=== PATIENT | male | born 1945 | race Caucasian/White ===

== ENCOUNTER 2021-08-12 08:03 | Inpatient (IN) ==
[2021-08-12] MEDS: HYDROmorphone INJ 0.5 MG/0.5 ML SYR IV PRN ×2 (08:47→10:48)
[2021-08-12 09:01] LABS: Basophils # (auto) 0.04 K/uL (0-0.2); Basophils % (auto) 0.7 %; Eosinophils % (auto) 3.4 %; Hematocrit (blood only) 36.2 % (42-52); Immature Granulocytes # (auto) 0.03 K/uL (0.00-0.02); Immature Granulocytes % (auto) 0.5 %; Lymphocytes # (auto) 1.48 K/uL (1.2-3.4); Lymphocytes % (auto) 25.4 %; Mean Corpuscular Hgb Conc 33.1 g/dL (32-36); Mean Corpuscular Volume 90.5 fL (80-100); Mean Platelet Volume 9.5 fL (7.4-10.4); Monocytes # (auto) 0.46 K/uL (0.11-0.59); Monocytes % (auto) 7.9 %; Neutrophils # (auto) 3.62 K/uL (1.4-6.5); Neutrophils % (auto) 62.1 %; Platelet Count 210 K/uL (130-400); RDW Coefficient of Variation 14.3 % (11.5-14.5); RDW Standard Deviation 47.6 fL (36.4-46.3); White Blood Count 5.83 K/uL (4.8-10.8)
--- NOTE | 2021-08-12 09:11 | CT Scan Report ---
CT SCAN OF THE BRAIN WITHOUT IV CONTRAST CLINICAL HISTORY: Fall. COMPARISON STUDY: No priors. TECHNIQUE: Unenhanced axial CT scan of the brain is performed from the vertex to the skull base. A do se lowering technique was utilized adhering to the principles of ALARA. CT DOSE: 614.27 mGy.cm FINDINGS: Brain parenchyma: There are age-related involutional changes noting mild subcortical and periventric ular microangiopathic change. There is no hemorrhage, mass effect, or evidence of acute territorial i schemia by CT criteria. Munguia-white matter differentiation is preserved. No extra-axial fluid collecti on is seen. Ventricles, sulci, cisterns: Prominent secondary to involutional change. Intracranial vasculature: There is atherosclerotic calcification of the cavernous carotid and vertebr al arteries. Calvarium: The skeletal structures are osteopenic. No depressed calvarial fracture is identified. Sinuses and mastoids: Trace mucosal thickening is noted in the maxillary antra. The remaining paranas al sinuses are clear. The mastoid air cells are well pneumatized. Orbits: The bony orbits are grossly intact. IMPRESSION: There is no hemorrhage, mass effect, or evidence of acute territorial ischemia by CT char lara. ACT 112: Negative or not required by law. Electronically signed by: Myron Schwartz M.D. 08/12/2021 9:09 AM
[2021-08-12 09:19] LABS: Albumin Level 3.4 gm/dl (3.4-5.0); BUN Creatinine Ratio 22.4 (10-20); Calcium 8.8 mg/dl (8.5-10.1); Creatinine Clr Calc Pharmacy 61.7 ml/min; Est GFR (African American) 76.2 ml/min; Est GFR (Non-African American) 65.8 ml/min; Potassium 4.3 mmol/L (3.5-5.1)
[2021-08-12 09:22] LABS: Albumin Globulin Ratio 0.9 (0.9-2); Bilirubin,Total 0.5 mg/dl (0.2-1); Globulin 3.9 gm/dl (2.5-4.0); Total Protein 7.3 gm/dl (6.4-8.2)
--- NOTE | 2021-08-12 09:46 | XRay Report ---
XR femur RT 2V routine HISTORY: 76 years-old Male fall . Acute pain of the right thigh status post fall COMPARISON: None TECHNIQUE: 2 views of the right femur FINDINGS: There is an acute comminuted fractures involving the proximal subtrochanteric femoral diaphysis with spiral component. There is approximately 3 mm medial and 2 cm volar displacement with mild apex volar and lateral angulation. Fracture component extends into the lesser trochanter which is displaced med ially. Moderate associated soft tissue swelling. Moderate right hip osteoarthritis. No additional acu te fracture or dislocation. Osteoarthritis of the knee. Arterial calcifications. Small right knee carrillo nt effusion. IMPRESSION: Acute comminuted, displaced and angulated subtrochanteric fracture of the proximal right femoral diaphysis. ACT 112: Negative or not required by law. The above report was generated using voice recognition software. It may contain grammatical, syntax o r spelling errors. Electronically signed by: Remigio Rodriguez M.D. 08/12/2021 9:45 AM
--- NOTE | 2021-08-12 10:06 | XRay Report ---
XR chest 1V portable CLINICAL HISTORY: fall COMPARISON STUDY: No previous studies for comparison. FINDINGS: No pneumothorax. No pleural effusion. No large infiltrates or consolidative lesions are seen. Cardiomediastinal silhouette is within normal limits in size. No significant pulmonary vascular congestion.. Aorta is tortuous and calcified. Osseous structures: No definite dislocated fractures are seen. Degenerative changes of the spine and bilateral shoulders are seen. IMPRESSION: 1. No acute pulmonary process. 2. Atherosclerosis. ACT 112: Negative or not required by law. The above report was generated using voice recognition software. It may contain grammatical, syntax o r spelling errors. Electronically signed by: Alysa Plascencia DO 08/12/2021 10:05 AM
--- NOTE | 2021-08-12 11:23 | History & Physical Report ---
Date of Service August 12, 2021 Assessment & Plan (1) Fall from ladder: (2) Closed right femoral fracture: Plan: This is a 76-year-old male with no known past medical problems who presents after fall earlier today and was found to have acute comminuted, displaced and angulated subtrochanteric fracture of the proximal right femoral diaphysis. Vital signs stable R Femur XR with acute comminuted, displaced and angulated subtrochanteric fracture of the proximal right femoral diaphysis Ortho consulted, planning to take patient to OR this afternoon Keep patient NPO, IV fluids, pre-op abx, pain control Pre-op EKG with sinus bradycardia, CXR without acute abnormalities Revised Cardiac Risk Index for Pre-Operative Risk with class 1 risk Able to complete >4 METs without issue, works as building tech Ortho surgery, anesthesia consulted DVT Ppx: SCDs Code status: FULL PCP: No PCP Dispo: Admitted to med/surg Patient seen in collaboration with Dr. Escobedo. Please see addendum. Plan: Attending Addendum: care coordinated with RAFAEL Mora please refer to her notes for full details, I agree with her notes patient seen and examined, records reviewed by myself as well on exam, patient seen resting in bed, not in distress s/p ORIF BP 89/60 alert, oriented x 3, conversant states he has minimal pain on the surgical site denies dizziness, chest pain, dyspnea, nausea no other symptoms VS noted and reviewed oriented x 3, not in distress, speaks in sentences with no effort nor accessory muscle use normal rate, regular rhythm, no murmurs clear breath sounds bilaterally non distended, soft, nontender R hip surgical dressing in place no bipedal edema, erythema, warmth no neuro deficits WBC 5.8 Hg 12.0 Crea 1.1 ASSESSMENT AND PLAN> Right displaced 4-part comminuted subtrochanteric femur fracture. s/p ORIF 08/12/21 BP on the lower side but asymptomatic likely from spinal anesthesia, Fentanyl 500cc NSS bolus ordered continue LR 125cc/hr monitor closely discussed with RN other diagnoses and plan of care as per LANDY Mora's notes Familia Escobedo MD History of Present Illness Chief Complaint: Fall Primary Care Provider: NO PCP This is a 76-year-old male with no known past medical problems who presents after fall earlier today. 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 Was climbing a ladder earlier today when it shifted out from under him and he fell to the ground onto his right side. Denies any head trauma or loss of consciousness. No headache, chest pain or shortness of breath following fall. Was brought into ED for evaluation. Patient does not seek medical care regularly. Takes a baby aspirin in the evening but no other medications. No history of heart disease, stroke, diabetes or kidney disease that is known. Pain controlled with 1 dose of IV Dilaudid in ED. Resting comfortably. Denies any fever, chills, lightheadedness, nausea, vomiting, abdominal pain, dysuria, diarrhea constipation. Allergies Allergy/AdvReac Type Severity Reaction Status Date / Time No Known Allergies Allergy Unverified 08/12/21 09:15 Home Medications Medication Instructions Recorded Confirmed Type aspirin 81 mg tablet,delayed 81 mg PO HS 08/12/21 08/12/21 History release Past Med/Surg History Medical History Closed right femoral fracture Surgical History H/O hernia repair Family History Other Lung cancer Parkinsons disease Social History Smoking Status: Never smoker Do You Dip or Chew Tobacco: No; Hx Alcohol Use: No Hx Substance Use: No Feels Safe at Home: Yes Review of Systems Review of Systems: At least ten systems reviewed and negative except as noted in the HPI. Physical Exam Physical Exam: General Appearance: WD/WN, vitals as above, NAD, sitting up in bed, pleasant, conversing easily Head: normocephalic, atraumatic Eyes: normal inspection, PERRL, conjunctivae normal, anicteric sclerae ENT: external ear and nose normal, oropharynx normal Neck: normal visual inspection, trachea midline, no thyromegaly Respiratory: normal respiratory effort, lungs clear to auscultation, no wheeze, rales, rhonchi. No accessory muscle use Cardiovascular: regular rate, rhythm, no murmur, normal peripheral pulses, no BLE edema. Vessels: no JVD Chest: normal inspection of chest Abdomen/GI: normal bowel sounds, soft, nontender, no hepatosplenomegaly Extremities/Musculoskeletal: R thigh with swelling, TTP to proximal femur. Skin intact. NVI distally in RLE. ROM limited 2/2 pain. No cyanosis or clubbing Neurologic: PERRL, EOMI, accommodation nl, no face palsy, no dysarthria, CN's II-XI intact bilaterally and moves all extremities Psychiatric: A+Ox3, euthymic affect Skin: no rashes, normal color, warm/dry Results & Data Results & Data ([facility]) Vital Signs (Past 12 Hours) Vital Signs Temp Pulse Resp BP Pulse Ox 08/12/21 10:00 57 L 20 104/61 99 08/12/21 09:30 53 L 22 123/68 100 08/12/21 09:01 60 97 08/12/21 09:00 55 L 23 97/60 L 99 08/12/21 08:59 56 L 22 100/59 L 99 08/12/21 08:28 36.9 C 66 18 114/65 98 08/12/21 08:11 59 L 18 114/65 Laboratory Results Short CBC 08/12/21 Range/Units 08:48 WBC 5.83 (4.8-10.8) K/uL Hgb 12.0 L (14.0-18.0) g/dL Hct 36.2 L (42-52) % Plt Count 210 (130-400) K/uL BMP 08/12/21 08:48 Sodium 140 Potassium 4.3 Chloride 107 Carbon Dioxide 27 BUN 25 H Creatinine 1.10 Glucose 139 H Calcium 8.8 Liver Function 08/12/21 Range/Units 08:48 Total Bilirubin 0.5 (0.2-1) mg/dl AST 22 (15-37) U/L ALT 28 (12-78) U/L Alkaline Phosphatase 47 (45-117) U/L Albumin 3.4 (3.4-5.0) gm/dl Diagnostic Findings Head CT 08/12/21 08:36 CT SCAN OF THE BRAIN WITHOUT IV CONTRAST CLINICAL HISTORY: Fall. COMPARISON STUDY: No priors. TECHNIQUE: Unenhanced axial CT scan of the brain is performed from the vertex to the skull base. A dose lowering technique was utilized adhering to the principles of ALARA. CT DOSE: 614.27 mGy.cm FINDINGS: Brain parenchyma: There are age-related involutional changes noting mild subco rtical and periventricular microangiopathic change. There is no hemorrhage, mass effect, or evidence of acute territorial ischemia by CT criteria. Munguia-white matter differentiation is preserved. No extra-axial fluid collection is seen. Ventricles, sulci, cisterns: Prominent secondary to involutional change. Intracranial vasculature: There is atherosclerotic calcification of the cavernous carotid and vertebral arteries. Calvarium: The skeletal structures are osteopenic. No depressed calvarial fracture is identified. Sinuses and mastoids: Trace mucosal thickening is noted in the maxillary antra. The remaining paranasal sinuses are clear. The mastoid air cells are well pneumatized. Orbits: The bony orbits are grossly intact. IMPRESSION: There is no hemorrhage, mass effect, or evidence of acute territorial ischemia by CT criteria. ACT 112: Negative or not required by law. Electronically signed by: Myron Schwartz M.D. 08/12/2021 9:09 AM Chest X-Ray 08/12/21 08:41 XR chest 1V portable CLINICAL HISTORY: fall COMPARISON STUDY: No previous studies for comparison. FINDINGS: No pneumothorax. No pleural effusion. No large infiltrates or consolidative lesions are seen. Cardiomediastinal silhouette is within normal limits in size. No significant pulmonary vascular congestion.. Aorta is tortuous and calcified. Osseous structures: No definite dislocated fractures are seen. Degenerative changes of the spine and bilateral shoulders are seen. IMPRESSION: 1. No acute pulmonary process. 2. Atherosclerosis. ACT 112: Negative or not required by law. The above report was generated using voice recognition software. It may contain grammatical, syntax or spelling errors. Electronically signed by: Alysa Plascencia DO 08/12/2021 10:05 AM Femur X-Ray 08/12/21 08:41 XR femur RT 2V routine HISTORY: 76 years-old Male fall . Acute pain of the right thigh status post fall COMPARISON: None TECHNIQUE: 2 views of the right femur FINDINGS: There is an acute comminuted fractures involving the proximal subtrochanteric femoral diaphysis with spiral component. There is approximately 3 mm medial and 2 cm volar displacement with mild apex volar and lateral angulation. Fracture component extends into the lesser trochanter which is displaced medially. Moderate associated soft tissue swelling. Moderate right hip osteoarthritis. No additional acute fracture or dislocation. Osteoarthritis of the knee. Arterial calcifications. Small right knee joint effusion. IMPRESSION: Acute comminuted, displaced and angulated subtrochanteric fracture of the proximal right femoral diaphysis. ACT 112: Negative or not required by law. The above report was generated using voice recognition software. It may contain grammatical, syntax or spelling errors. Electronically signed by: Remigio Rodriguez M.D. 08/12/2021 9:45 AM Code Status & VTE Plan VTE Prophylaxis Plan VTE Prophylaxis will be ordered: Yes
--- NOTE | 2021-08-12 12:02 | Anesthesiology Consultation ---
Date of Service August 12, 2021 Assessment & Plan (1) Encounter for pre-operative examination: Chart Review Chart Review: Acceptable Risk for Surgery and Patient NOT seen in Pre Admission Testing covid neg 08/12/21 Consults Requested none History Surgery Operation Date: 08/12/21 10:45 Proposed Procedures p Right Troch Nail - Moy Rock DO Height/Weight Height: 5 ft 8 in Weight: 82.6 kg Allergies Allergy/AdvReac Type Severity Reaction Status Date / Time No Known Allergies Allergy Unverified 08/12/21 09:15 Medications Home Medications Medication Instructions Recorded Confirmed Last Taken aspirin 81 mg tablet,delayed 0 mg PO DAILY 08/12/21 08/12/21 08/12/21 release 3 tabs Active Medications Generic Name Dose Route Start Last Admin Trade Name Freq PRN Reason Stop Dose Admin Hydromorphone HCl 0.5 mg 08/12/21 08:36 08/12/21 10:48 Hydromorphone Inj 0.5 Mg/0.5 Ml Syr IV 08/26/21 08:44 0.5 mg Q15M PRN Administration pain NPO Date Last Intake of Fluids: 08/12/21 Time Last Intake of Fluids: 06:00 Date Last Intake of Solids: 08/12/21 Time Last Intake of Solids: 06:00 Past Medical History Medical History (Updated 08/12/21 @ 12:48 by Tay Carson MD) Closed right femoral fracture Past Surgical History Surgical History (Updated 08/12/21 @ 12:47 by Tay Carson MD) H/O hernia repair Past Anesthesia History No Hx of Anesthesia Complications and No Family Hx of Anesthesia Complications History of PONV No Hx of PONV and No Hx of Motion Sickness Social History Smoking Status: Never smoker Do You Dip or Chew Tobacco: No Hx Alcohol Use: No Hx Substance Use: No Physical Exam Vital Signs Last Vital Signs Temp 36.9 C 08/12/21 08:28 Pulse 67 08/12/21 12:00 Resp 22 08/12/21 12:00 BP 111/65 08/12/21 12:00 Pulse Ox 96 08/12/21 12:00 ENMT Mouth: + dentition abnormality, + poor dentition and + chipped teeth; no TMJ abnormality and no loose teeth Thyromental Distance: > or= 3.5 Finger Breadths Mallampati Class: II Neck normal visual inspection and + facial hair (large osborn ) Respiratory normal respiratory effort; no respiratory distress Cardiovascular Rate/Rhythm: regular rate and regular rhythm Heart Sounds: no murmur Musculoskeletal Spine: normal cervical ROM and no pain with cervical ROM Neurologic moves all extremities Motor/Sensory: no sensory deficit Psychiatric Orientation: alert and oriented x 3 Testing Laboratory Results 08/12/21 08:48 08/12/21 08:48 Blood Type A Positive 08/12/21 08:51 Antibody Screen NEGATIVE 08/12/21 08:51 Electrocardiogram Date: 08/12/21 Sinus alta. HR 57. Cannot rule out inferior infarct, age undetermined. Abnormal ECG. Chest X-Ray Date: 08/12/21 XR chest 1V portable CLINICAL HISTORY: fall COMPARISON STUDY: No previous studies for comparison. FINDINGS: No pneumothorax. No pleural effusion. No large infiltrates or consolidative lesions are seen. Cardiomediastinal silhouette is within normal limits in size. No significant pulmonary vascular congestion.. Aorta is tortuous and calcified. Osseous structures: No definite dislocated fractures are seen. Degenerative changes of the spine and bilateral shoulders are seen. IMPRESSION: 1. No acute pulmonary process. 2. Atherosclerosis.
--- NOTE | 2021-08-12 13:08 | Orthopedic Consultation ---
Date of Consultation August 12, 2021 Assessment & Plan (1) Closed right femoral fracture: X-rays reviewed with Dr. Rock. Patient will require a long TFN with the possibility of use of cables to secure butterfly fragments. Risks and benefits have been explained to the patient to the best of my knowledge. Patient is in agreement to undergo surgery. I have spoken to Alexa Mora PA-C. Patient at this time appears stable. Anesthesia has seen the patient as well. Plan for OR this afternoon. 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 He states that as he was climbing up the ladder the ladder shifted out from under him and he fell to the ground. He denies hitting his head. He denies losing consciousness. There was no shortness of breath, chest pain, lightheadedness prior to or after the fall. The patient states that when he hit the ground, he had moderate pain in the right thigh and he was unable to ambulate. He was brought to the emergency room where he was seen by the staff. X-rays were taken. It was found that he had a right subtrochanteric comminuted femur fracture. We have been asked to take care of his fracture. Currently the patient is lying in bed awake and alert. He states that his pain is controlled at this time. He states the only time he tries to hurt is if he tries to move. No other complaints at this time. Allergies Allergy/AdvReac Type Severity Reaction Status Date / Time No Known Allergies Allergy Unverified 08/12/21 09:15 Home Medications Medication Instructions Recorded Confirmed Type aspirin 81 mg tablet,delayed 0 mg PO DAILY 08/12/21 08/12/21 History release Patient History Medical History Closed right femoral fracture Surgical History H/O hernia repair Social History Smoking Status: Never smoker Do You Dip or Chew Tobacco: No; Hx Alcohol Use: No Hx Substance Use: No Feels Safe at Home: Yes Review of Systems Review of Systems: Denies any recent fevers, chills, night sweats, unexplained weight loss or weight gain. No flu or cold-like symptoms. No increased cough or sputum production. Denies chest pain, chest pressure, irregular heartbeat, myocardial infarction. Denies shortness of breath at rest or on exertion. Denies history of pneumonia, bronchitis, hemoptysis. Denies unusual nausea, vomiting, diarrhea, hematemesis, melena. Denies hematuria, pyuria, dysuria. No history of seizure disorder, migraine headache Physical Exam Physical Exam: On exam, the patient is lying in bed awake and alert. He is oriented x3. He is in no acute distress. Pleasant and cooperative. On examination of his right lower extremity, he has moderate swelling at the right thigh. He has noticeable shortening of the right leg compared to the left. Swelling is increased around the intertrochanteric/subtrochanteric region that is mildly tense. Edema translates distally and is soft. No overt bruising noted on the right knee and range of motion is deferred secondary to fracture. He states that he does have pain in his knee at times but currently no pain with palpation. He has good range of motion of his right ankle at this time with out discomfort. Left lower extremity is unaffected and is nontender at the hip, knee, ankle with range of motion intact. Upper extremities are within normal limits. He is nontender at the shoulders, elbows, and wrists. Range of motion within normal limits. There is no gross motor or sensory loss seen at this time. Distal pulses are equal bilaterally of the upper and lower extremities. Results & Data ([facility]) Vital Signs (Past 12 Hours) Vital Signs Temp Pulse Resp BP Pulse Ox 08/12/21 12:00 67 22 111/65 96 08/12/21 11:30 67 20 115/64 99 08/12/21 11:00 61 23 95/55 L 96 08/12/21 10:30 59 L 21 105/61 98 08/12/21 10:00 57 L 20 104/61 99 08/12/21 09:30 53 L 22 123/68 100 08/12/21 09:01 60 97 08/12/21 09:00 55 L 23 97/60 L 99 08/12/21 08:59 56 L 22 100/59 L 99 08/12/21 08:28 36.9 C 66 18 114/65 98 08/12/21 08:11 59 L 18 114/65 Diagnostic Findings Patient: MARGARITA GONZALEZ IAdmit Date: 08/12/21MR#: [id number]: Martina MOORE RDAcct ID:[id number]: Date: 1945[facility] Zip: [place], [place] [address]Cun: 76Location: EDSex: MRoom/Bed:Att Phy:Diagnosis: FELL OFF LADDER- BROKEN R LEGPri Phy: PCP,NOService Date: 08/12/21Fam Phy:Interpreting Phy: Remigio RodriguezAdmnishi Phy: Ordering Phy: Florencio Masterson MD cc: ~ XR femur RT 2V routine HISTORY: 76 years-old Male fall . Acute pain of the right thigh status post fall COMPARISON: None TECHNIQUE: 2 views of the right femur FINDINGS: There is an acute comminuted fractures involving the proximal subtrochanteric femoral diaphysis with spiral component. There is approximately 3 mm medial and 2 cm volar displacement with mild apex volar and lateral angulation. Fracture component extends into the lesser trochanter which is displaced medially. Moderate associated soft tissue swelling. Moderate right hip osteoarthritis. No additional acute fracture or dislocation. Osteoarthritis of the knee. Arterial calcifications. Small right knee joint effusion. IMPRESSION: Acute comminuted, displaced and angulated subtrochanteric fracture of the proximal right femoral diaphysis. ACT 112: Negative or not required by law.
[2021-08-12] MEDS ORDERED: BUPIVACAINE 0.5 % 5 MG/1 ML MPF 30ML VIAL ONE (13:37)
[2021-08-12] MEDS ORDERED: BUPIVACAINE 0.5 % 5 MG/1 ML PF 10ML VIAL ONE (13:53)
[2021-08-12] MEDS ORDERED: PROPOFOL IV EMULSION 10 MG/ML 20 ML VIAL IV ONE (14:13)
[2021-08-12] MEDS ORDERED: ePHEDrine sulfate 50 MG/ML AMP IV PRN (14:17)
[2021-08-12] MEDS ORDERED: ATROPINE SULFATE 0.1 MG/ML 10ML SYR IV PRN (14:17)
[2021-08-12] MEDS ORDERED: fentaNYL citrate 100 MCG/2 ML VIAL IV PRN (14:17)
[2021-08-12] MEDS ORDERED: PROMETHAZINE HCL 6.25 MG in SODIUM CHLORIDE 0.9% 50 ML IV PRN (14:17)
[2021-08-12] MEDS ORDERED: ONDANSETRON INJ 2 MG/ML 2 ML VIAL IV PRN ×2 (14:17→19:34)
[2021-08-12] MEDS ORDERED: ceFAZolin 2000MG 2,000 MG/15 ML SYR IV ONE (14:26)
[2021-08-12] MEDS ORDERED: MIDAZOLAM HCL 1 MG/ML 2ML VIAL ONE (14:27)
[2021-08-12] MEDS ORDERED: ceFAZolin 2,000 MG/15 ML IV PUSH IV ONE (14:27)
--- NOTE | 2021-08-12 14:29 | History & Physical Bridge Note ---
Date of Service August 12, 2021 History & Physical Bridge Note I have examined the patient, reviewed the History & Physical and in the interval since the performance of the History & Physical I have noted the following changes of clinical significance: no changes noted
[2021-08-12] MEDS ORDERED: fentaNYL citrate 100 MCG/2 ML VIAL ONE (14:35)
[2021-08-12] MEDS ORDERED: ONDANSETRON INJ 2 MG/ML 2 ML VIAL ONE (15:08)
[2021-08-12] MEDS ORDERED: ePHEDrine sulfate 50 MG/ML AMP ONE (15:08)
--- NOTE | 2021-08-12 15:11 | Emergency Department Note ---
Impression & Plan Closed right femoral fracture, Fall from ladder ED Provider Note INFORMANT: Patient ED PROVIDER(S): Florencio Masterson MD CHIEF COMPLAINT: Fall PLAN: Disposition: Admitted Condition: Good Outpatient prescription management: none Referral: None MEDICAL DECISION MAKING: Patient presented for an isolated fall. He suffered an injury to the right proximal leg. He had head CT and chest x-ray performed and these were negative. The patient's ECG was normal. His right femur x-ray revealed a proximal subtrochanteric fracture. He was neurovascularly intact. He was treated with Dilaudid and felt much better. The patient was kept in bed and was comfortable. A consultation was placed with Dr. Anam Horta of [facility]. The patient will be evaluated by the team for cervical intervention. He did not recommend for any traction. [facility] The patient was admitted for further management. Triage Nursing notes reviewed and agree them. Vital Signs: reviewed and remarkable for no significant abnormalities Differential diagnosis: Fracture, dislocation, contusion, intra-abdominal, pneumothorax, intrathoracic, intracranial, neurologic, compartment syndrome, rhabdomyolysis, as well as other pathologies. Diagnostics interpreted by me: ECG: Twelve-lead ECG reveals sinus bradycardia [address] elevation or pression. No PACs or PVCs. Normal QRS and axis. Cardiac Monitoring: Cardiac monitoring ordered by me: The patient was placed on continuous cardiac monitoring and observed. It revealed a normal sinus rhythm at 60 beats per minute without ectopy or evidence of dysrhythmia. Imaging studies: CT imaging of the head is negative for acute process. Chest x-ray. Findings: A chest x-ray was performed and revealed no pneumothorax, effusion, infiltrate, pulmonary edema, free air under the diaphragm, or wide mediastinum. Impression: No acute disease. X-ray imaging of the right femur reveals a comminuted right subtrochanteric fracture. HPI: The patient is a 76 year old male who presents to the Emergency Room with complaints of right leg pain. This started just prior to arrival and is from a fall about 8 feet. The patient was climbing on a ladder to get up on a roof and the ladder kicked out. He fell directly onto his right leg. He was unable to walk due to severe pain. The patient also notes the following associated symptoms, shortening and external rotation of the right leg. The patient has taken aspirin for relieving factors. Current pain is rated as 7/10. Patient denies any other traumatic injury. Pt denies LOC, headache, fevers, chills, diaphoresis, visual changes, neck pain, chest pain, breathing difficulties, nausea, vomiting, abdominal pain, back pain, melena, hematochezia, urinary symptoms, numbness, weakness, lymphadenopathy, rash, or other complaints. ROS: See above HPI for pertinent positives & negatives. A total of 10 systems reviewed and were otherwise negative. PAST MEDICAL HISTORY:See Below , left heel fracture PAST SURGICAL HISTORY:See Below, denies FAMILY HISTORY:See Below SOCIAL HISTORY:See Below, employed as a boogie HOME MEDICATIONS:See Below ALLERGIES:See Below VITALS:See Below PHYSICAL EXAMINATION: GENERAL: Awake, alert, uncomfortable-appearing, in no distress HENT: Normocephalic, atraumatic. Oropharynx unremarkable. No holloway sign. EYES: Normal conjunctiva. Sclera non-icteric. PERRLA. EOMI. No raccoon's eyes NECK: Inspection normal. Non-tender. Supple. No nuchal rigidity. FROM. No masses. RESPIRATORY: Clear to auscultation. No wheezes. No rales. Normal respiratory effort. CARDIAC: Normal rate. Normal rhythm. No murmurs. No rubs. Extremities warm and well perfused. Pulses equal. No JVD. GI: Soft, non-distended. No tenderness to palpation. No rebound or guarding. No masses. RECTAL: Deferred. MUSCULOSKELETAL: Atraumatic. Chest examination reveals no tenderness. The back is symmetrical on inspection without obvious abnormality. There is no CVA tenderness to palpation. No joint edema. LOWER EXTREMITIES: Shortening and external rotation of the right lower extremity. Tenderness about the proximal thigh. No ecchymosis or discoloration. Good distal pulses. NEURO: Normal sensorium. No sensory or motor deficits noted. SKIN: No rash or jaundice noted. Florencio Masterson MD Past Med/Surg History Medical History Closed right femoral fracture Surgical History H/O hernia repair Family History Other Lung cancer Parkinsons disease Social History Smoking Status: Never smoker Do You Dip or Chew Tobacco: No; Hx Alcohol Use: No Hx Substance Use: No Feels Safe at Home: Yes Allergies Allergies Allergy/AdvReac Type Severity Reaction Status Date / Time No Known Allergies Allergy Unverified 08/12/21 09:15 Home Meds Home Medications Medication Instructions Recorded Confirmed aspirin 81 mg tablet,delayed 0 mg PO DAILY 08/12/21 08/12/21 release Results & Data (ED) Vital Signs Vital Signs - 24 hr 08/12/21 08:11 08/12/21 08:28 08/12/21 08:59 Temperature 36.9 C Temperature Source Oral Pulse Rate 59 L 66 56 L Pulse Rate [Left Finger] Pulse Rate from SpO2 Sensor 55 L Pulse Rhythm Regular Pulse Rhythm [Left Finger] Pulse Strength Normal Pulse Strength [Left Finger] Respiratory Rate 18 18 22 Respiratory Effort / Characteristics Non-Labored Spontaneous Respiratory Depth Normal Respiratory Pattern Regular Blood Pressure 114/65 114/65 100/59 L Blood Pressure [Left Arm] Blood Pressure Mean 81 81 72 Blood Pressure Mean [Left Arm] Blood Pressure Position Sitting Blood Pressure Position [Left Arm] Pulse Oximetry 98 99 Oxygen Delivery Method Room Air Sepsis Recent Fever Within 48 Hours No Sepsis New/Unexplained Change in Mental Status N/A Sepsis Action Taken by Nursing No Action Required 08/12/21 09:00 08/12/21 09:01 08/12/21 09:30 Temperature Temperature Source Pulse Rate 55 L 60 53 L Pulse Rate [Left Finger] Pulse Rate from SpO2 Sensor 56 L 53 L Pulse Rhythm Pulse Rhythm [Left Finger] Pulse Strength Pulse Strength [Left Finger] Respiratory Rate 23 22 Respiratory Effort / Characteristics Respiratory Depth Respiratory Pattern Blood Pressure 97/60 L 123/68 Blood Pressure [Left Arm] Blood Pressure Mean 72 86 Blood Pressure Mean [Left Arm] Blood Pressure Position Blood Pressure Position [Left Arm] Pulse Oximetry 99 97 100 Oxygen Delivery Method Room Air Sepsis Recent Fever Within 48 Hours Sepsis New/Unexplained Change in Mental Status Sepsis Action Taken by Nursing 08/12/21 10:00 08/12/21 10:30 08/12/21 11:00 Temperature Temperature Source Pulse Rate 57 L 59 L 61 Pulse Rate [Left Finger] Pulse Rate from SpO2 Sensor 57 L 59 L 62 Pulse Rhythm Pulse Rhythm [Left Finger] Pulse Strength Pulse Strength [Left Finger] Respiratory Rate 20 21 23 Respiratory Effort / Characteristics Respiratory Depth Respiratory Pattern Blood Pressure 104/61 105/61 95/55 L Blood Pressure [Left Arm] Blood Pressure Mean 75 75 68 Blood Pressure Mean [Left Arm] Blood Pressure Position Blood Pressure Position [Left Arm] Pulse Oximetry 99 98 96 Oxygen Delivery Method Sepsis Recent Fever Within 48 Hours Sepsis New/Unexplained Change in Mental Status Sepsis Action Taken by Nursing 08/12/21 11:30 08/12/21 12:00 08/12/21 13:41 Temperature 36.8 C Temperature Source Oral Pulse Rate 67 67 Pulse Rate [Left Finger] 72 Pulse Rate from SpO2 Sensor 65 66 Pulse Rhythm Pulse Rhythm [Left Finger] Regular Pulse Strength Pulse Strength [Left Finger] Normal Respiratory Rate 20 22 18 Respiratory Effort / Characteristics Non-Labored Spontaneous Respiratory Depth Normal Respiratory Pattern Regular Blood Pressure 115/64 111/65 Blood Pressure [Left Arm] 120/71 Blood Pressure Mean 81 80 Blood Pressure Mean [Left Arm] 87 Blood Pressure Position Blood Pressure Position [Left Arm] Lying Pulse Oximetry 99 96 97 Oxygen Delivery Method Room Air Sepsis Recent Fever Within 48 Hours Sepsis New/Unexplained Change in Mental Status Sepsis Action Taken by Nursing Laboratory Data Result diagrams: 08/12/21 08:48 08/12/21 08:48 Lab Results 08/12/21 08/12/21 08/12/21 Range/Units 08:48 08:48 08:51 WBC 5.83 (4.8-10.8) K/uL RBC 4.00 L (4.7-6.1) M/uL Hgb 12.0 L (14.0-18.0) g/dL Hct 36.2 L (42-52) % MCV 90.5 (80-100) fL MCH 30.0 (25-34) pg MCHC 33.1 (32-36) g/dL RDW Std Deviation 47.6 H (36.4-46.3) fL RDW Coeff of Gifty 14.3 (11.5-14.5) % Plt Count 210 (130-400) K/uL MPV 9.5 (7.4-10.4) fL Immature Gran % (Auto) 0.5 % Neut % (Auto) 62.1 % Lymph % (Auto) 25.4 % [place] % (Auto) 7.9 % Eos % (Auto) 3.4 % Baso % (Auto) 0.7 % Neut # (Auto) 3.62 (1.4-6.5) K/uL Lymph # (Auto) 1.48 (1.2-3.4) K/uL [place] # (Auto) 0.46 (0.11-0.59) K/uL Eos # (Auto) 0.20 (0-0.5) K/uL Baso # (Auto) 0.04 (0-0.2) K/uL Immature Gran # (Auto) 0.03 H (0.00-0.02) K/uL Sodium 140 (136-145) mmol/L Potassium 4.3 (3.5-5.1) mmol/L Chloride 107 (98-107) mmol/L Carbon Dioxide 27 (21-32) mmol/L Anion Gap 6.0 (3-11) BUN 25 H (7-18) mg/dl Creatinine 1.10 (0.6-1.4) mg/dl Est Cr Clr Drug Dosing 61.7 ml/min Est GFR ( Amer) 76.2 ml/min Est GFR (Non-Af Amer) 65.8 ml/min BUN/Creatinine Ratio 22.4 H (10-20) Glucose 139 H (70-99) mg/dl Calcium 8.8 (8.5-10.1) mg/dl Total Bilirubin 0.5 (0.2-1) mg/dl AST 22 (15-37) U/L ALT 28 (12-78) U/L Alkaline Phosphatase 47 (45-117) U/L Total Protein 7.3 (6.4-8.2) gm/dl Albumin 3.4 (3.4-5.0) gm/dl Globulin 3.9 (2.5-4.0) gm/dl Albumin/Globulin Ratio 0.9 (0.9-2) COVID-19 Eval Order SARS-CoV-2 (PCR) (Negative) Blood Type A Positive Antibody Screen NEGATIVE 08/12/21 08/12/21 Range/Units 09:49 09:49 WBC (4.8-10.8) K/uL RBC (4.7-6.1) M/uL Hgb (14.0-18.0) g/dL Hct (42-52) % MCV (80-100) fL MCH (25-34) pg MCHC (32-36) g/dL RDW Std Deviation (36.4-46.3) fL RDW Coeff of Gifty (11.5-14.5) % Plt Count (130-400) K/uL MPV (7.4-10.4) fL Immature Gran % (Auto) % Neut % (Auto) % Lymph % (Auto) % [place] % (Auto) % Eos % (Auto) % Baso % (Auto) % Neut # (Auto) (1.4-6.5) K/uL Lymph # (Auto) (1.2-3.4) K/uL [place] # (Auto) (0.11-0.59) K/uL Eos # (Auto) (0-0.5) K/uL Baso # (Auto) (0-0.2) K/uL Immature Gran # (Auto) (0.00-0.02) K/uL Sodium (136-145) mmol/L Potassium (3.5-5.1) mmol/L Chloride (98-107) mmol/L Carbon Dioxide (21-32) mmol/L Anion Gap (3-11) BUN (7-18) mg/dl Creatinine (0.6-1.4) mg/dl Est Cr Clr Drug Dosing ml/min Est GFR ( Amer) ml/min Est GFR (Non-Af Amer) ml/min BUN/Creatinine Ratio (10-20) Glucose (70-99) mg/dl Calcium (8.5-10.1) mg/dl Total Bilirubin (0.2-1) mg/dl AST (15-37) U/L ALT (12-78) U/L Alkaline Phosphatase (45-117) U/L Total Protein (6.4-8.2) gm/dl Albumin (3.4-5.0) gm/dl Globulin (2.5-4.0) gm/dl Albumin/Globulin Ratio (0.9-2) COVID-19 Eval Order Covid19 at [facility] SARS-CoV-2 (PCR) NEGATIVE (Negative) Blood Type Antibody Screen Administered Medications Hydromorphone HCl (Hydromorphone Inj 0.5 Mg/0.5 Ml Syr) 0.5 mg IV Q15M PRN PRN Reason: pain Stop: 08/26/21 08:44 Last Admin: 08/12/21 10:48 Dose: 0.5 mg Documented by: [id number] Admin: 08/12/21 08:47 Dose: 0.5 mg Documented by: [id number] Discontinued Medications Cefazolin Sodium (Cefazolin 2,000 Mg/15 Ml Iv Push) Confirm Administered Dose 2,000 mg IV .STclipkit-MED ONE Stop: 08/12/21 14:28 Last Admin: 08/12/21 14:29 Dose: 2,000 mg Documented by: [id number] Imaging Data Radiologist's Impression: Head CT 08/12/21 08:36 CT SCAN OF THE BRAIN WITHOUT IV CONTRAST CLINICAL HISTORY: Fall. COMPARISON STUDY: No priors. TECHNIQUE: Unenhanced axial CT scan of the brain is performed from the vertex to the skull base. A dose lowering technique was utilized adhering to the principles of ALARA. CT DOSE: 614.27 mGy.cm FINDINGS: Brain parenchyma: There are age-related involutional changes noting mild subcortical and periventricular microangiopathic change. There is no hemorrhage, mass effect, or evidence of acute territorial ischemia by CT criteria. Munguia- white matter differentiation is preserved. No extra-axial fluid collection is seen. Ventricles, sulci, cisterns: Prominent secondary to involutional change. Intracranial vasculature: There is atherosclerotic calcification of the cavernous carotid and vertebral arteries. Calvarium: The skeletal structures are osteopenic. No depressed calvarial fracture is identified. Sinuses and mastoids: Trace mucosal thickening is noted in the maxillary antra. The remaining paranasal sinuses are clear. The mastoid air cells are well pneum atized. Orbits: The bony orbits are grossly intact. IMPRESSION: There is no hemorrhage, mass effect, or evidence of acute territorial ischemia by CT criteria. ACT 112: Negative or not required by law. Electronically signed by: Myron Schwartz M.D. 08/12/2021 9:09 AM Chest X-Ray 08/12/21 08:41 XR chest 1V portable CLINICAL HISTORY: fall COMPARISON STUDY: No previous studies for comparison. FINDINGS: No pneumothorax. No pleural effusion. No large infiltrates or consolidative lesions are seen. Cardiomediastinal silhouette is within normal limits in size. No significant pulmonary vascular congestion.. Aorta is tortuous and calcified. Osseous structures: No definite dislocated fractures are seen. Degenerative changes of the spine and bilateral shoulders are seen. IMPRESSION: 1. No acute pulmonary process. 2. Atherosclerosis. ACT 112: Negative or not required by law. The above report was generated using voice recognition software. It may contain grammatical, syntax or spelling errors. Electronically signed by: Alysa Plascencia DO 08/12/2021 10:05 AM Femur X-Ray 08/12/21 08:41 XR femur RT 2V routine HISTORY: 76 years-old Male fall . Acute pain of the right thigh status post fall COMPARISON: None TECHNIQUE: 2 views of the right femur FINDINGS: There is an acute comminuted fractures involving the proximal subtrochanteric femoral diaphysis with spiral component. There is approximately 3 mm medial and 2 cm volar displacement with mild apex volar and lateral angulation. Fracture component extends into the lesser trochanter which is displaced medially. Moderate associated soft tissue swelling. Moderate right hip osteoarthritis. No additional acute fracture or dislocation. Osteoarthritis of the knee. Arterial calcifications. Small right knee joint effusion. IMPRESSION: Acute comminuted, displaced and angulated subtrochanteric fracture of the proximal right femoral diaphysis. ACT 112: Negative or not required by law. The above report was generated using voice recognition software. It may contain grammatical, syntax or spelling errors. Electronically signed by: Remigio Rodriguez M.D. 08/12/2021 9:45 AM Discharge Plan Visit Data Chief Complaint: Leg Injury/Pain Stated Complaint: FELL OFF LADDER-BROKEN R LEG ED Provider: Florencio Masterson Discharge Problem: Closed right femoral fracture, Fall from ladder Patient Disposition: Admitted As Inpatient Discharge Instructions Interventions: ED Discharge Assessment Last Done: 08/12/21 12:54
[2021-08-12] MEDS ORDERED: SODIUM CHLORIDE 0.9% 250 ML IV PRN (15:35)
[2021-08-12] MEDS ORDERED: ALBUMIN HUMAN 5% 12.5 GM/250 ML VIAL IV ONE (15:55)
--- NOTE | 2021-08-12 17:00 | Electrocardiogram Report ---
Test Reason : Blood Pressure : / mmHG Vent. Rate : 057 BPM Atrial Rate : 057 BPM P-R Int : 188 ms QRS Dur : 108 ms QT Int : 434 ms P-R-T Axes : 056 022 010 degrees QTc Int : 422 ms Sinus bradycardia Normal ECG No previous ECGs available Confirmed by Stalin Andino ([id number]) on 08/12/2021 4:59:33 PM Referred By: REFERRED SELF Confirmed By:Stalin Andino
--- NOTE | 2021-08-12 17:28 | Post Operative Brief Note ---
Immediate Post Op Note v1 Date of Surgery August 12, 2021 Pre & Post Diagnosis Operation Date: 08/12/21 10:45 Pre-Op Diagnosis: Displaced four-part comminuted subtrochanteric Femur Fracture, fall from a height Post-Op Diagnosis: Displaced four-part comminuted subtrochanteric Femur Fracture, fall from a height I identified the patient and participated in the time-out.: Yes Procedure Operation Date: 08/12/21 10:45 Actual Procedures p Right Synthes trochanteric Nailing 400 mm x 11 mm with 2 distal locking screws and a 95 mm helical blade, application orthopedic cables x2 right proximal femur (Right) - Moy Rock DO Surgeon Moy Rock DO Home Supervisor Haresh Lucio PA-C Estimated Blood Loss 200 Findings Consistent with Post-Op Diagnosis Anesthesia Type General Regional Complications none Disposition Accompanied Patient To Recovery: No
--- NOTE | 2021-08-12 17:35 | Fluoroscopy Report ---
FL hip RT 2-3V CLINICAL HISTORY: Right trochanteric nail. COMPARISON STUDY: Right femur radiographs August 12, 2021. FLUOROSCOPY TIME: 196.2 seconds. FLUOROSCOPIC IMAGES: 6 FINDINGS: Fluoroscopy was provided for internal fixation of the subtrochanteric fracture of the right femur with trochanteric nail and intramedullary samy. Cerclage wires are noted. Fracture alignment rod s markedly improved and appears near anatomic. The hardware is intact. Distal screws are present. IMPRESSION: Fluoroscopy provided during internal fixation of the right femoral fracture, as describe d above ACT 112: Negative or not required by law. Electronically signed by: Michael Case M.D. 08/12/2021 5:34 PM
[2021-08-12] MEDS ORDERED: LACTATED RINGER'S 500 ML IV ONE (18:46)
[2021-08-12] MEDS ORDERED: SODIUM CHLORIDE 0.9% 500 ML IV SCH (19:30)
[2021-08-12] MEDS ORDERED: HYDROmorphone INJ 0.5 MG/0.5 ML SYR IV PRN (19:34)
[2021-08-12] MEDS ORDERED: LACTATED RINGER'S 1,000 ML IV SCH (19:34)
[2021-08-12] MEDS ORDERED: METOCLOPRAMIDE HCL INJ 5 MG/ML 2 ML VIAL IV PRN (19:34)
[2021-08-12] MEDS ORDERED: MAGNESIUM HYDROXIDE SUSP 30 ML UDC PO PRN ×2 (19:34)
[2021-08-12] MEDS ORDERED: bisacodyL 10 MG SUPP PR PRN ×2 (19:34)
[2021-08-12] MEDS ORDERED: POLYETHYLENE (MIRALAX) 17 GM PACK PO PRN (19:34)
[2021-08-12] MEDS ORDERED: NALOXONE HCL 0.4 MG/1 ML VIAL/CARP IV PRN (19:34)
[2021-08-12] MEDS ORDERED: HYDROmorphone HCL 2 MG TAB PO PRN (19:34)
--- NOTE | 2021-08-12 19:50 | Operative Report (OR) ---
DATE OF PROCEDURE: 08/12/2021 PREOPERATIVE DIAGNOSES: 1. Right displaced 4-part comminuted subtrochanteric femur fracture. 2. Fall from a height. POSTOPERATIVE DIAGNOSES: 1. Right displaced 4-part comminuted subtrochanteric femur fracture. 2. Fall from a height. PROCEDURE: ORIF of right displaced 4-part comminuted subtrochanteric femur fracture with Synthes trochanteric nailing 400 mm x 11 mm with 95 mm helical blade and 2 distal locking screws, application of orthopedic cables x2 proximal femur. SURGEON: Moy Rock DO. ACADEMY DIRECTOR: Haresh Lucio PA-C who was present for patient positioning, sterile prep and drape, management of retractors and instruments. He was present through the critical portions of the case including wound closure, application of sterile dressing and transport of the patient to recovery. ANESTHESIA: General, local. SPECIMENS: None. DRAINS: None. COMPLICATIONS: None. BLOOD LOSS: 200 mL. PERTINENT HISTORY: This is a 76-year-old gentleman who was doing some faiza. He fell from a height and landed on his right femur. He felt severe pain, noted obvious deformity and was unable to ambulate on the limb. He was then transported to [facility], he was evaluated and noted to have an unstable displaced comminuted 4-part subtrochanteric femur fracture. He was then scheduled for surgery as indicated. All potential risks, benefits, complications, alternatives, rehab potential for incomplete relief of symptoms, need for further surgery, DVT, PE, , persistent pain, swelling, scarring, weakness, neurovascular injury, wound complications, hardware failure, nonunion, malunion and bone fracture were discussed with the patient. The patient decided to proceed with the procedure as indicated. DESCRIPTION OF PROCEDURE: The patient was transferred to the operative suite. The proper site was identified. The consent was reviewed, the patient was then administered sedation and spinal anesthetic. Once appropriate, the patient then transferred to the fracture table where the lower extremity was placed in fracture table traction and the nonoperative leg was placed in the well leg timmons. All bony prominences were properly padded and protected. The padded post was placed in the peroneal and the patient was positioned appropriately. Next the left leg was placed on traction and reduction of the fracture was performed under fluoroscopic control. Next the operative hip was then sterilely prepped and draped in the usual fashion. Next a 10-blade scalpel incision was used to make an incision proximal to the greater trochanter. The incision was deep in the subcutaneous tissue and fascia and the tip of the greater trochanter was then palpated followed by placement of a guide pin under fluoroscopic control driven into the greater trochanter down to the level of the less trochanter. This was confirmed in AP and lateral projections followed by placement of the proximal reamer over the cannulated guide pin. Next the reamer was then removed using the soft tissue protector, which was also removed. Next the comminuted portion of the femoral shaft fracture was then addressed. A 10 blade scalpel was then used to make an incision along the lateral aspect of the thigh to the level of the fascia. Punctate bleeders were cauterized using judicious electrocautery. The iliotibial band was then split in line with the skin incision using a 10 blade scalpel. The vastus lateralis was then palpated and then sharply elevated from its inferior aspect using electrocautery. Using comminution of sharp and blunt dissection, the vastus lateralis was then elevated and protected using large Protek blunt Hohmann retractors. Next using manual manipulation and large bone reduction forceps, the fracture fragments were then placed into near anatomic alignment under direct visualization and fluoroscopic control. Using the curved orthopedic cable passers, 2 separate orthopedic braided metallic cables were passed circumferentially around the fracture fragments to maintain reduction provisionally. Next the ball tip guide samy was placed into the proximal femur under fluoroscopic control and confirmed with AP and lateral fluoroscope projections. The ball-tipped guide samy was then passed into the distal fracture fragment to the level of the Blumensaat's line. Position of the ball-tipped guide samy was noted in both AP and lateral fluoroscopic projections in the center center position of the distal femur. Next using sequential reamers, the femur was reamed to 1.5 mm greater diameter than the planned trochanteric nail. The planned nail length was measured as 400 mm x 11 mm. Next the trochanteric nail was then passed over the guide samy into the distal femur, the guide samy was removed and then under fluoroscopic control appropriate level of the femoral nail was then placed in AP projections. Next the targeting device was then fixed to the driving handle and 10-blade scalpel incision was made in the lateral aspect of the thigh. Next the tissue protector and cannulated guide system was then passed into the soft tissue until it was securely fixed against a lateral aspect of the femoral cortex. This was also confirmed under C-arm. Next the guide pin for the spiral blade was driven into the lateral aspect of the femur confirming this with AP lateral projections until the guide pin was in the center of the femoral neck and head approximately 5 mm from the subcortical bone of the femur. Next the spiral blade length was then measured and then the lateral cortex was then drilled with the cortex reamer followed by use of the triple reamer with the depth stop set at appropriate depth. In this case, a 95 mm helical blade was then inserted over the cannulated guide samy under fluoroscopic control. This was seated appropriately then traction was reduced from the limb and the fracture was then gently compressed and then locked proximally with the flexible screwdriver. Next the spiral blade was then disengaged from its insertion handle, insertion handle was then removed and the guide pin was removed from the femoral neck and head. The insertion arm was then removed from the nail and attention was then directed to the distal aspect of the nail. Fluoroscopic images were utilized to obtain perfect [place] views of the distal locking holes of the nail. Under fluoroscopic control both static and dynamic holes were filled with transverse locking screws of appropriate length noted above. For confirmation, final x-rays were obtained in AP and lateral projections noting stable fixation of the comminuted subtrochanteric femoral fracture. All incisions were then copiously irrigated with sterile normal saline. The proximal gluteus fascia and the iliotibial band were then closed using interrupted #1 Vicryl, the dermis was closed using buried interrupted 2-0 Vicryl sutures in all incisions and the skin was then closed using skin rodney. A sterile compressive dressing consisting of Xeroform gauze, sterile 4 x 4's and tape was applied. The patient was then awakened, gently transferred to the hospital bed and taken to recovery in stable condition. Job ID: [id number] [facility] HOSPITALJudson
[2021-08-12] MEDS: SODIUM CHLORIDE 0.9% 1000ML 1,000 ML IV SCH (20:19)
[2021-08-12] MEDS ORDERED: DOCUSATE SODIUM/SENNA 50/8.6MG TAB PO SCH (21:00)
[2021-08-12] MEDS: DOCUSATE SODIUM 100 MG CAP PO SCH (21:20)
[2021-08-12] MEDS: SENNA 8.6 MG TAB PO SCH (21:20)
[2021-08-12] MEDS: ceFAZolin 2000MG 2,000 MG/15 ML SYR IV SCH (21:21)
[2021-08-13] MEDS: ACETAMINOPHEN 500 MG TAB PO PRN ×2 (01:18→18:11)
[2021-08-13] MEDS: SODIUM CHLORIDE 0.9% 1000ML 1,000 ML IV SCH (03:23)
[2021-08-13 03:46] LABS: Appearance Urine Clear (Clear); Bilirubin Urine Negative (Negative); Blood Urine Negative (Negative); Color Urine Yellow; Glucose Urine UA Negative (Negative); Ketones Urine Negative (Negative); Leukocyte Esterase Urine Negative (Negative); Nitrite Urine Negative (Negative); Protein Urine Negative (Negative); Specific Gravity Urine 1.033 (1.000-1.030); Urobilinogen Urine Negative (Negative)
[2021-08-13] MEDS: ceFAZolin 2000MG 2,000 MG/15 ML SYR IV SCH (05:09)
[2021-08-13] MEDS ORDERED: ceFAZolin 2000MG 2,000 MG/15 ML SYR IV SCH (06:00)
[2021-08-13] MEDS: oxyCODONE HCL IR 5 MG TAB (IMMEDIATE RELEASE) PO PRN ×2 (06:20→18:11)
[2021-08-13 07:38] LABS: Hematocrit (blood only) 23.6 % (42-52); Hemoglobin 7.7 g/dL (14.0-18.0); Mean Corpuscular Hemoglobin 30.1 pg (25-34); Mean Corpuscular Hgb Conc 32.6 g/dL (32-36); Mean Corpuscular Volume 92.2 fL (80-100); Mean Platelet Volume 9.1 fL (7.4-10.4); Platelet Count 149 K/uL (130-400); RDW Coefficient of Variation 14.5 % (11.5-14.5); Red Blood Count 2.56 M/uL (4.7-6.1); White Blood Count 5.83 K/uL (4.8-10.8)
[2021-08-13 07:48] LABS: BUN Creatinine Ratio 23.7 (10-20); Calcium 7.7 mg/dl (8.5-10.1); Est GFR (African American) 93.4 ml/min; Est GFR (Non-African American) 80.6 ml/min; Potassium 3.9 mmol/L (3.5-5.1)
[2021-08-13] MEDS ORDERED: SODIUM CHLORIDE 0.9% 250 ML IV PRN ×2 (07:58→08:10)
[2021-08-13] MEDS ORDERED: SODIUM CHLORIDE 0.9% 1000ML 1,000 ML IV SCH (08:00)
[2021-08-13] MEDS: DOCUSATE SODIUM 100 MG CAP PO SCH ×2 (08:36→21:08)
[2021-08-13] MEDS: MULTIVITAMIN TAB PO SCH (08:36)
--- NOTE | 2021-08-13 08:48 | Orthopedic Progress Note ---
Date of Service August 13, 2021 Assessment & Plan (1) Closed right femoral fracture: Plan: Postop day 1 status post ORIF right comminuted subtrochanteric femur fracture Hemoglobin dropped down to 7.7. Plan for transfusion of 2 units PRBCs. PT/OT protocols. Nonweightbearing on the right lower extremity. DVT prophylaxis-aspirin p.o. twice daily, SCDs. Pain management as written. Admission and Anticipated Discharge Date Admission Date: August 12, 2021 Subjective Postop day 1 Patient sitting up in bed eating breakfast. No complaints this morning. Pain is controlled. Denies shortness of breath, chest pain, lightheadedness. Physical Exam Physical Exam: Dressings are clean, dry, and intact. Thigh with swelling consistent with surgery. Calves are soft and nontender. Neurovascular intact. Toes are mobile. Results & Data ([facility]) Vital Signs (Past 12 Hours) Vital Signs Temp Pulse Pulse Resp BP BP Pulse Ox 08/13/21 07:33 36.7 C 77 16 103/50 L 95 08/13/21 05:12 75 15 98/59 L 96 08/13/21 03:00 36.8 C 69 16 97/53 L 98 08/13/21 01:22 99 08/12/21 23:25 36.4 C L 78 18 96/54 L 98 08/12/21 22:30 36.6 C 77 18 100/60 100 08/12/21 21:26 36.3 C L 77 22 100/56 L 100 Laboratory Results Laboratory Results WBC 5.83 K/uL (4.8-10.8) 08/13/21 06:59 RBC 2.56 M/uL (4.7-6.1) L 08/13/21 06:59 Hgb 7.7 g/dL (14.0-18.0) L D 08/13/21 06:59 Hct 23.6 % (42-52) L 08/13/21 06:59 MCV 92.2 fL (80-100) 08/13/21 06:59 MCH 30.1 pg (25-34) 08/13/21 06:59 MCHC 32.6 g/dL (32-36) 08/13/21 06:59 RDW Std Deviation 49.0 fL (36.4-46.3) H 08/13/21 06:59 RDW Coeff of Gifty 14.5 % (11.5-14.5) 08/13/21 06:59 Plt Count 149 K/uL (130-400) 08/13/21 06:59 MPV 9.1 fL (7.4-10.4) 08/13/21 06:59 Immature Gran % (Auto) 0.5 % 08/12/21 08:48 Neut % (Auto) 62.1 % 08/12/21 08:48 Lymph % (Auto) 25.4 % 08/12/21 08:48 [place] % (Auto) 7.9 % 08/12/21 08:48 Eos % (Auto) 3.4 % 08/12/21 08:48 Baso % (Auto) 0.7 % 08/12/21 08:48 Neut # (Auto) 3.62 K/uL (1.4-6.5) 08/12/21 08:48 Lymph # (Auto) 1.48 K/uL (1.2-3.4) 08/12/21 08:48 [place] # (Auto) 0.46 K/uL (0.11-0.59) 08/12/21 08:48 Eos # (Auto) 0.20 K/uL (0-0.5) 08/12/21 08:48 Baso # (Auto) 0.04 K/uL (0-0.2) 08/12/21 08:48 Immature Gran # (Auto) 0.03 K/uL (0.00-0.02) H 08/12/21 08:48 Sodium 138 mmol/L (136-145) 08/13/21 06:59 Potassium 3.9 mmol/L (3.5-5.1) 08/13/21 06:59 Chloride 107 mmol/L (98-107) 08/13/21 06:59 Carbon Dioxide 23 mmol/L (21-32) 08/13/21 06:59 Anion Gap 7.0 (3-11) 08/13/21 06:59 BUN 22 mg/dl (7-18) H 08/13/21 06:59 Creatinine 0.93 mg/dl (0.6-1.4) 08/13/21 06:59 Est Cr Clr Drug Dosing 73.0 ml/min 08/13/21 06:59 Est GFR ( Amer) 93.4 ml/min 08/13/21 06:59 Est GFR (Non-Af Amer) 80.6 ml/min 08/13/21 06:59 BUN/Creatinine Ratio 23.7 (10-20) H 08/13/21 06:59 Glucose 149 mg/dl (70-99) H 08/13/21 06:59 Calcium 7.7 mg/dl (8.5-10.1) L 08/13/21 06:59 Total Bilirubin 0.5 mg/dl (0.2-1) 08/12/21 08:48 AST 22 U/L (15-37) 08/12/21 08:48 ALT 28 U/L (12-78) 08/12/21 08:48 Alkaline Phosphatase 47 U/L (45-117) 08/12/21 08:48 Total Protein 7.3 gm/dl (6.4-8.2) 08/12/21 08:48 Albumin 3.4 gm/dl (3.4-5.0) 08/12/21 08:48 Globulin 3.9 gm/dl (2.5-4.0) 08/12/21 08:48 Albumin/Globulin Ratio 0.9 (0.9-2) 08/12/21 08:48 Urine Color Yellow 08/13/21 03:30 Urine Appearance Clear (Clear) 08/13/21 03:30 Urine pH 5.0 (4.5-7.5) 08/13/21 03:30 Ur Specific [place] 1.033 (1.000-1.030) H 08/13/21 03:30 Urine Protein Negative (Negative) 08/13/21 03:30 Urine Glucose (UA) Negative (Negative) 08/13/21 03:30 Urine Ketones Negative (Negative) 08/13/21 03:30 Urine Blood Negative (Negative) 08/13/21 03:30 Urine Nitrite Negative (Negative) 08/13/21 03:30 Urine Bilirubin Negative (Negative) 08/13/21 03:30 Urine Urobilinogen Negative (Negative) 08/13/21 03:30 Ur Leukocyte Esterase Negative (Negative) 08/13/21 03:30 COVID-19 Eval Order Covid19 at [facility] 08/12/21 09:49 SARS-CoV-2 (PCR) NEGATIVE (Negative) 08/12/21 09:49 Blood Type A Positive 08/12/21 08:51 Blood Type Recheck A Positive 08/12/21 18:37 Antibody Screen NEGATIVE 08/12/21 08:51 Crossmatch See Detail 08/12/21 08:51 Hip X-Ray 08/12/21 14:00 FL hip RT 2-3V CLINICAL HISTORY: Right trochanteric nail. COMPARISON STUDY: Right femur radiographs August 12, 2021. FLUOROSCOPY TIME: 196.2 seconds. FLUOROSCOPIC IMAGES: 6 FINDINGS: Fluoroscopy was provided for internal fixation of the subtrochanteric fracture of the right femur with trochanteric nail and intramedullary samy. Cerclage wires are noted. Fracture alignment has markedly improved and appears near anatomic. The hardware is intact. Distal screws are present. IMPRESSION: Fluoroscopy provided during internal fixation of the right femoral fracture, as described above ACT 112: Negative or not required by law. Electronically signed by: Michael Case M.D. 08/12/2021 5:34 PM
--- NOTE | 2021-08-13 09:09 | Anesthesiology Progress Note ---
Date of Service August 13, 2021 Anesthesia Post Procedure Vital Signs Vital Signs: Temp Pulse Pulse Pulse Resp BP BP 08/13/21 08:48 98.6 F 73 16 102/61 08/13/21 07:33 98.1 F 77 16 08/13/21 05:12 75 15 08/13/21 03:00 98.2 F 69 16 08/13/21 01:22 08/12/21 23:25 97.5 F L 78 18 96/54 L 08/12/21 22:30 97.9 F 77 18 100/60 08/12/21 21:26 97.3 F L 77 22 100/56 L 08/12/21 20:30 97.7 F 78 20 116/52 L 08/12/21 20:00 97.5 F L 18 08/12/21 19:43 96.1 F L 20 08/12/21 19:00 56 L 25 H 89/52 L 08/12/21 18:50 97.5 F L 57 L 22 96/59 L 08/12/21 18:40 55 L 23 99/59 L 08/12/21 18:30 53 L 21 97/56 L 08/12/21 18:20 58 L 21 89/54 L 08/12/21 18:10 58 L 19 08/12/21 18:00 61 22 08/12/21 17:50 64 17 08/12/21 17:43 53 L 19 08/12/21 17:40 97.3 F L 68 18 08/12/21 13:41 98.2 F 72 18 120/71 08/12/21 12:00 67 22 111/65 08/12/21 11:30 67 20 115/64 08/12/21 11:00 61 23 95/55 L 08/12/21 10:30 59 L 21 105/61 08/12/21 10:00 57 L 20 104/61 08/12/21 09:30 53 L 22 123/68 BP Pulse Ox 08/13/21 08:48 93 08/13/21 07:33 103/50 L 95 08/13/21 05:12 98/59 L 96 08/13/21 03:00 97/53 L 98 08/13/21 01:22 99 08/12/21 23:25 98 08/12/21 22:30 100 08/12/21 21:26 100 08/12/21 20:30 100 08/12/21 20:00 109/63 97 08/12/21 19:43 86/48 L 94 08/12/21 19:00 100 08/12/21 18:50 100 08/12/21 18:40 99 08/12/21 18:30 100 08/12/21 18:20 95 08/12/21 18:10 86/50 L 93 08/12/21 18:00 93/50 L 93 08/12/21 17:50 87/56 L 94 08/12/21 17:43 118/65 96 08/12/21 17:40 80/49 L 96 08/12/21 13:41 97 08/12/21 12:00 96 08/12/21 11:30 99 08/12/21 11:00 96 08/12/21 10:30 98 08/12/21 10:00 99 08/12/21 09:30 100 Pain Intensity Right Hip: Pain Intensity: 2 Transfer of Care Handoff Completed per policy Notes Mental Status: alert / awake / arousable and participated in evaluation Patient Amnestic to Procedure: Yes Nausea / Vomiting: adequately controlled Pain: adequately controlled Airway Patency, RR, SpO2: stable & adequate BP & HR: stable & adequate Hydration State: stable & adequate Anesthetic Complications: no major complications apparent and Pt Satisfied with anesthetic care
[2021-08-13] MEDS: ASPIRIN 81 MG ECTAB PO SCH ×2 (09:22→21:33)
--- NOTE | 2021-08-13 17:11 | Hospitalist Progress Note ---
Date of Service August 13, 2021 Assessment & Plan (1) Fall from ladder: (2) Closed right femoral fracture: Plan: This is a 76-year-old male with no known past medical problems who presents after fall that led to right hip fracture Xray showed acute comminuted, displaced and angulated subtrochanteric fracture of the proximal right femoral diaphysis. S/P day #1 ORIF right comminuted subtrochanteric femur fracture by dr. Rock No post op complication Nonweightbearing on the right lower extremity. Continue pain control Continue incentive spirometry PT/OT eval Fall precaution Anemia Acute blood loss anemia in the setting of expected post surgical blood loss and dilution Asymptomatic - Dizziness Hbg dropped to 7.7 Type and crossed and currently getting 2 units PRBC Continue monitor H/H DVT Ppx: SCDs/Will start on Asa BID as per ortho Code status: FULL PCP: No PCP Dispo: Will discharge once medically stable Admission and Anticipated Discharge Date Admission Date: August 12, 2021 Subjective Pt was seen and and examined for postop follow up Lying in bed with no acute distress Pt said that pain is control Nurse said that pt was a little dizzy this morning Denies any chest pain, palpitation, dizziness and SOB Review of Systems Review of Systems: All systems reviewed & are unremarkable except as noted in Subjective Physical Exam Physical Exam: General- No acute distress Head- atraumatic Eyes- PERRL, EOMI, ENT- oropharynx clear Neck- supple, no JVD Lungs- clear to auscultation Heart- regular rhythm; no murmur Abdomen- normal bowel sounds, soft, nontender Extremities- no calf tenderness, right hip pain Neuro- alert, oriented x 3; PERRL, EOMI; no facial palsy; no dysarthria Skin- warm & dry Results & Data Results & Data ([facility]) Vital Signs (Past 12 Hours) Vital Signs Temp Pulse Pulse Resp BP BP BP 08/13/21 14:52 37.3 C 81 18 115/63 08/13/21 14:02 37.4 C 77 17 119/63 08/13/21 14:00 37.4 C 75 16 119/63 08/13/21 13:30 37.2 C 76 18 111/57 L 08/13/21 13:01 37.0 C 81 16 116/57 L 08/13/21 12:45 36.7 C 86 81 17 117/59 L 117/59 L 08/13/21 12:28 36.8 C 70 17 111/63 08/13/21 12:14 36.7 C 80 16 123/67 08/13/21 12:02 37 C 75 16 116/61 08/13/21 11:30 36.9 C 79 16 105/54 L 08/13/21 10:30 37 C 71 16 101/52 L 08/13/21 10:00 37.2 C 72 18 100/50 L 08/13/21 09:30 36.9 C 81 18 116/60 08/13/21 09:15 37.0 C 80 20 96/50 L 08/13/21 08:48 37 C 73 16 102/61 08/13/21 07:33 36.7 C 77 16 103/50 L 08/13/21 05:12 75 15 98/59 L Pulse Ox 08/13/21 14:52 96 08/13/21 14:02 95 08/13/21 14:00 95 08/13/21 13:30 96 08/13/21 13:01 95 08/13/21 12:45 95 08/13/21 12:28 95 08/13/21 12:14 97 08/13/21 12:02 95 08/13/21 11:30 94 08/13/21 10:30 98 08/13/21 10:00 98 08/13/21 09:30 97 08/13/21 09:15 94 08/13/21 08:48 93 08/13/21 07:33 95 08/13/21 05:12 96
[2021-08-13] MEDS: SENNA 8.6 MG TAB PO SCH (21:08)
[2021-08-14] MEDS: oxyCODONE HCL IR 5 MG TAB (IMMEDIATE RELEASE) PO PRN (05:51)
[2021-08-14 06:21] LABS: Hematocrit (blood only) 29.3 % (42-52); Hemoglobin 9.7 g/dL (14.0-18.0); Mean Corpuscular Hgb Conc 33.1 g/dL (32-36); Mean Corpuscular Volume 90.7 fL (80-100); Mean Platelet Volume 9.8 fL (7.4-10.4); Platelet Count 136 K/uL (130-400); RDW Coefficient of Variation 14.8 % (11.5-14.5); RDW Standard Deviation 49.2 fL (36.4-46.3); Red Blood Count 3.23 M/uL (4.7-6.1); White Blood Count 8.45 K/uL (4.8-10.8)
[2021-08-14 06:52] LABS: BUN Creatinine Ratio 23.2 (10-20); Calcium 8.2 mg/dl (8.5-10.1); Creatinine Clr Calc Pharmacy 99.9 ml/min; Est GFR (Non-African American) 94.1 ml/min; Potassium 3.7 mmol/L (3.5-5.1)
[2021-08-14 08:33] VITALS: O2SAT 95
[2021-08-14] MEDS: MULTIVITAMIN TAB PO SCH (08:46)
[2021-08-14] MEDS: DOCUSATE SODIUM 100 MG CAP PO SCH (08:46)
[2021-08-14] MEDS: ASPIRIN 81 MG ECTAB PO SCH (08:46)
[2021-08-14] MEDS: ACETAMINOPHEN 500 MG TAB PO PRN (08:46)
--- NOTE | 2021-08-14 10:03 | Orthopedic Progress Note ---
Date of Service August 14, 2021 Assessment & Plan (1) Closed right femoral fracture: Plan: Postop day 1 status post ORIF right comminuted subtrochanteric femur fracture Hemoglobin dropped down to 7.7. 9.7 after transfusion PT/OT protocols. Nonweightbearing on the right lower extremity. DVT prophylaxis-aspirin p.o. twice daily, SCDs. Pain management as written. DC planning-patient planning for discharge to home. Admission and Anticipated Discharge Date Admission Date: August 12, 2021 Subjective Postop day 2 Patient sitting up in chair at the bedside talking on the phone. No complaints today. Pain is controlled. Patient states he is planning on going home today. Physical Exam Physical Exam: Dressing is clean, dry, and intact. No overt erythema around the dressing itself. Thigh swollen consistent with surgery. Calves are soft nontender. Neurovascular is intact. Toes are mobile. Results & Data ([facility]) Vital Signs (Past 12 Hours) Vital Signs Temp Pulse Resp BP Pulse Ox 08/14/21 08:32 36.7 C 80 16 115/60 95 08/13/21 23:39 37.0 C 75 16 118/68 97 Laboratory Results Laboratory Results WBC 8.45 K/uL (4.8-10.8) 08/14/21 06:00 RBC 3.23 M/uL (4.7-6.1) L 08/14/21 06:00 Hgb 9.7 g/dL (14.0-18.0) L 08/14/21 06:00 Hct 29.3 % (42-52) L 08/14/21 06:00 MCV 90.7 fL (80-100) 08/14/21 06:00 MCH 30.0 pg (25-34) 08/14/21 06:00 MCHC 33.1 g/dL (32-36) 08/14/21 06:00 RDW Std Deviation 49.2 fL (36.4-46.3) H 08/14/21 06:00 RDW Coeff of Gifty 14.8 % (11.5-14.5) H 08/14/21 06:00 Plt Count 136 K/uL (130-400) 08/14/21 06:00 MPV 9.8 fL (7.4-10.4) 08/14/21 06:00 Immature Gran % (Auto) 0.5 % 08/12/21 08:48 Neut % (Auto) 62.1 % 08/12/21 08:48 Lymph % (Auto) 25.4 % 08/12/21 08:48 [place] % (Auto) 7.9 % 08/12/21 08:48 Eos % (Auto) 3.4 % 08/12/21 08:48 Baso % (Auto) 0.7 % 08/12/21 08:48 Neut # (Auto) 3.62 K/uL (1.4-6.5) 08/12/21 08:48 Lymph # (Auto) 1.48 K/uL (1.2-3.4) 08/12/21 08:48 [place] # (Auto) 0.46 K/uL (0.11-0.59) 08/12/21 08:48 Eos # (Auto) 0.20 K/uL (0-0.5) 08/12/21 08:48 Baso # (Auto) 0.04 K/uL (0-0.2) 08/12/21 08:48 Immature Gran # (Auto) 0.03 K/uL (0.00-0.02) H 08/12/21 08:48 Sodium 139 mmol/L (136-145) 08/14/21 06:00 Potassium 3.7 mmol/L (3.5-5.1) 08/14/21 06:00 Chloride 108 mmol/L (98-107) H 08/14/21 06:00 Carbon Dioxide 25 mmol/L (21-32) 08/14/21 06:00 Anion Gap 6.0 (3-11) 08/14/21 06:00 BUN 16 mg/dl (7-18) 08/14/21 06:00 Creatinine 0.68 mg/dl (0.6-1.4) 08/14/21 06:00 Est Cr Clr Drug Dosing 99.9 ml/min 08/14/21 06:00 Est GFR ( Amer) 109.0 ml/min 08/14/21 06:00 Est GFR (Non-Af Amer) 94.1 ml/min 08/14/21 06:00 BUN/Creatinine Ratio 23.2 (10-20) H 08/14/21 06:00 Glucose 122 mg/dl (70-99) H 08/14/21 06:00 Calcium 8.2 mg/dl (8.5-10.1) L 08/14/21 06:00 Total Bilirubin 0.5 mg/dl (0.2-1) 08/12/21 08:48 AST 22 U/L (15-37) 08/12/21 08:48 ALT 28 U/L (12-78) 08/12/21 08:48 Alkaline Phosphatase 47 U/L (45-117) 08/12/21 08:48 Total Protein 7.3 gm/dl (6.4-8.2) 08/12/21 08:48 Albumin 3.4 gm/dl (3.4-5.0) 08/12/21 08:48 Globulin 3.9 gm/dl (2.5-4.0) 08/12/21 08:48 Albumin/Globulin Ratio 0.9 (0.9-2) 08/12/21 08:48 Urine Color Yellow 08/13/21 03:30 Urine Appearance Clear (Clear) 08/13/21 03:30 Urine pH 5.0 (4.5-7.5) 08/13/21 03:30 Ur Specific [place] 1.033 (1.000-1.030) H 08/13/21 03:30 Urine Protein Negative (Negative) 08/13/21 03:30 Urine Glucose (UA) Negative (Negative) 08/13/21 03:30 Urine Ketones Negative (Negative) 08/13/21 03:30 Urine Blood Negative (Negative) 08/13/21 03:30 Urine Nitrite Negative (Negative) 08/13/21 03:30 Urine Bilirubin Negative (Negative) 08/13/21 03:30 Urine Urobilinogen Negative (Negative) 08/13/21 03:30 Ur Leukocyte Esterase Negative (Negative) 08/13/21 03:30 COVID-19 Eval Order Covid19 at [facility] 08/12/21 09:49 SARS-CoV-2 (PCR) NEGATIVE (Negative) 08/12/21 09:49 Blood Type A Positive 08/12/21 08:51 Blood Type Recheck A Positive 08/12/21 18:37 Antibody Screen NEGATIVE 08/12/21 08:51 Crossmatch See Detail 08/12/21 08:51
[2021-08-14 14:40] VITALS: PULSE 83; TEMP 98.2
--- NOTE | 2021-08-14 16:00 | Discharge Summary ---
Date of Service August 14, 2021 Admission HPI Per Admitting Provider This is a 76-year-old male with no known past medical problems who presents after fall earlier today. 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 Was climbing a ladder earlier today when it shifted out from under him and he fell to the ground onto his right side. Denies any head trauma or loss of consciousness. No headache, chest pain or shortness of breath following fall. Was brought into ED for evaluation. Patient does not seek medical care regularly. Takes a baby aspirin in the evening but no other medications. No history of heart disease, stroke, diabetes or kidney disease that is known. Pain controlled with 1 dose of IV Dilaudid in ED. Resting comfortably. Denies any fever, chills, lightheadedness, nausea, vomiting, abdominal pain, dysuria, diarrhea constipation. Admission Exam Per Admitting Provider General Appearance: WD/WN, vitals as above, NAD, sitting up in bed, pleasant, conversing easily Head: normocephalic, atraumatic Eyes: normal inspection, PERRL, conjunctivae normal, anicteric sclerae ENT: external ear and nose normal, oropharynx normal Neck: normal visual inspection, trachea midline, no thyromegaly Respiratory: normal respiratory effort, lungs clear to auscultation, no wheeze, rales, rhonchi. No accessory muscle use Cardiovascular: regular rate, rhythm, no murmur, normal peripheral pulses, no BLE edema. Vessels: no JVD Chest: normal inspection of chest Abdomen/GI: normal bowel sounds, soft, nontender, no hepatosplenomegaly Extremities/Musculoskeletal: R thigh with swelling, TTP to proximal femur. Skin intact. NVI distally in RLE. ROM limited 2/2 pain. No cyanosis or clubbing Neurologic: PERRL, EOMI, accommodation nl, no face palsy, no dysarthria, CN's II-XI intact bilaterally and moves all extremities Psychiatric: A+Ox3, euthymic affect Skin: no rashes, normal color, warm/dry Principal Diagnosis Fall from ladder: Closed right femoral fracture: Acute blood loss Anemia Discharge Exam General- No acute distress Head- atraumatic Eyes- PERRL, EOMI, ENT- oropharynx clear Neck- supple, no JVD Lungs- clear to auscultation Heart- regular rhythm; no murmur Abdomen- normal bowel sounds, soft, nontender Extremities- no calf tenderness, right hip pain Neuro- alert, oriented x 3; PERRL, EOMI; no facial palsy; no dysarthria Skin- warm & dry Discharge Data Allergies Allergy/AdvReac Type Severity Reaction Status Date / Time No Known Allergies Allergy Unverified 08/12/21 09:15 Consultations 08/12/21 09:56 ED Decision to Admit Stat 08/12/21 11:19 Consult Orthopedic Surgery Routine 08/12/21 19:34 Consult Anesthesiology Routine Procedures Performed Operation Date: 08/12/21 10:45 Actual Procedures p Right Troch Nail(Right) - Moy Rock DO Ordered Studies 08/12/21 08:36 CT head/brain wo con Stat 08/12/21 14:00 FL hip RT 2-3V Routine FL hip RT 2-3V CLINICAL HISTORY: Right trochanteric nail. COMPARISON STUDY: Right femur radiographs August 12, 2021. FLUOROSCOPY TIME: 196.2 seconds. FLUOROSCOPIC IMAGES: 6 FINDINGS: Fluoroscopy was provided for internal fixation of the subtrochanteric fracture of the right femur with trochanteric nail and intramedullary samy. Cerclage wires are noted. Fracture alignment has markedly improved and appears near anatomic. The hardware is intact. Distal screws are present. IMPRESSION: Fluoroscopy provided during internal fixation of the right femoral fracture, as described above ACT 112: Negative or not required by law. Electronically signed by: Michael Case M.D. 08/12/2021 5:34 PM Dictated: 08/12/[id number]: 08/12/21 173 XR femur RT 2V routine HISTORY: 76 years-old Male fall . Acute pain of the right thigh status post fall COMPARISON: None TECHNIQUE: 2 views of the right femur FINDINGS: There is an acute comminuted fractures involving the proximal subtrochanteric femoral diaphysis with spiral component. There is approximately 3 mm medial and 2 cm volar displacement with mild apex volar and lateral angulation. Fracture component extends into the lesser trochanter which is displaced medially. Moderate associated soft tissue swelling. Moderate right hip osteoarthritis. No additional acute fracture or dislocation. Osteoarthritis of the knee. Arterial calcifications. Small right knee joint effusion. IMPRESSION: Acute comminuted, displaced and angulated subtrochanteric fracture of the proximal right femoral diaphysis. ACT 112: Negative or not required by law. The above report was generated using voice recognition software. It may contain grammatical, syntax or spelling errors. Electronically signed by: Remigio Rodriguez M.D. 08/12/2021 9:45 AM Dictated: 08/12/21 0943Transcribed: 08/12/21 09 XR chest 1V portable CLINICAL HISTORY: fall COMPARISON STUDY: No previous studies for comparison. FINDINGS: No pneumothorax. No pleural effusion. No large infiltrates or consolidative lesions are seen. Cardiomediastinal silhouette is within normal limits in size. No significant pulmonary vascular congestion.. Aorta is tortuous and calcified. Osseous structures: No definite dislocated fractures are seen. Degenerative changes of the spine and bilateral shoulders are seen. IMPRESSION: 1. No acute pulmonary process. 2. Atherosclerosis. ACT 112: Negative or not required by law. The above report was generated using voice recognition software. It may contain grammatical, syntax or spelling errors. Electronically signed by: Alysa Plascencia DO 08/12/2021 10:05 AM Dictated: 08/12/21 1004Transcribed: 08/12/[address] SCAN OF THE BRAIN WITHOUT IV CONTRAST CLINICAL HISTORY: Fall. COMPARISON STUDY: No priors. TECHNIQUE: Unenhanced axial CT scan of the brain is performed from the vertex to the skull base. A dose lowering technique was utilized adhering to the principles of ALARA. CT DOSE: 614.27 mGy.cm FINDINGS: Brain parenchyma: There are age-related involutional changes noting mild subcortical and periventricular microangiopathic change. There is no hemorrhage, mass effect, or evidence of acute territorial ischemia by CT criteria. Munguia- white matter differentiation is preserved. No extra-axial fluid collection is seen. Ventricles, sulci, cisterns: Prominent secondary to involutional change. Intracranial vasculature: There is atherosclerotic calcification of the cavernous carotid and vertebral arteries. Calvarium: The skeletal structures are osteopenic. No depressed calvarial fracture is identified. Sinuses and mastoids: Trace mucosal thickening is noted in the maxillary antra. The remaining paranasal sinuses are clear. The mastoid air cells are well pneumatized. Orbits: The bony orbits are grossly intact. IMPRESSION: There is no hemorrhage, mass effect, or evidence of acute territorial ischemia by CT criteria. ACT 112: Negative or not required by law. Electronically signed by: Myron Schwartz M.D. 08/12/2021 9:09 AM Dictated: 08/12/21905Transcribed: 08/12/21905 Hospital Course (1) Fall from ladder: (2) Closed right femoral fracture: This is a 76-year-old male with no known past medical problems who presents after fall that led to right hip fracture Xray showed acute comminuted, displaced and angulated subtrochanteric fracture of the proximal right femoral diaphysis. S/P day #2 ORIF right comminuted subtrochanteric femur fracture by dr. Rock No post op complication Nonweightbearing on the right lower extremity. Continue pain control Continue incentive spirometry PT/OT eval Fall precaution Follow up with ortho in 2 weeks Ok from Ortho standpoint to discharge home Anemia Acute blood loss anemia in the setting of expected post surgical blood loss and dilution Asymptomatic - Dizziness Hbg dropped to 7.7 yesterday S/P 2 units PRBC during the hospital course Hgb 9.7 today Continue monitor H/H DVT Ppx: SCDs// Continue Asa BID as per ortho Code status: FULL PCP: No PCP Dispo: Discharge home today Total Time Total Time Spent Total Time Spent (In Minutes): 35 minutes Discharge Plan Discharge Items Patient Disposition: Home - Self-Care Reason For Visit: R PROX FEMUR FRACTURE S/P FALL Discharge Diagnosis: Fall from ladder: Closed right femoral fracture: Anemia Activity: As commented below Weightbearing: Left non-weightbearing Weightbearing Comment: Use of walker or crutches Non-emergency contact: Surgeon Call non-emergency contact if: your pain is not controlled, your temperature is above 101.5, your wound has increased redness and your wound has increased drainage Follow-up/Referrals: Moy Rock DO [Surgeon] - (Follow-up for wound check and staple removal in 10 to 14 days from the day of surgery.) PCP,NO [Primary Care Provider] - Diet: Heart Healthy Addtl Attending Provider Instructions: Follow up with your primary care provider within 1 week (please call to schedule for the follow up appointment) Follow up with orthopedic Dr. Rock in 2 weeks (Please call [facility] at [phone] to schedule a follow up appointment 10-14 days from the date of your surgery date.) Fall precaution Continue non-weightbearing in left lower extremity Do not drive or operate any machine after taking oxycodone Please hold next dose of oxycodone if you become drowsy and lethargy Check CBC in 1 week to monitor your hemoglobin Continue aspirin 81mg twice a day for 4 weeks to reduce the risk of blood clot (please seek medical attention or notify your provider if you develop any abnormal bleeding) Addtl Electrical Sign Wirer Provider Instructions: [facility] DISCHARGE INSTRUCTIONS: PROXIMAL FEMUR FRACTURE SELF CARE INSTRUCTIONS: A. You are to ambulate with a walker or crutches for approximately 6 weeks. B. You are to be NON-WEIGHTBEARING on your operative lower extremity for at least 6 weeks. C. Wear low heeled shoes with non-slip soles D. Be sure that your floors are free of things that could trip you throw rugs, electrical cords, and small objects. Avoid wet and waxed floors, especially with crutches/walker/cane. E. Try to walk several times a day with rest periods between. F. You may shower 48 hours after surgery and get the incision area wet, but DO NOT soak or submerge incision area in water. (No baths, swimming pools, hot tubs) G. You may have a large, band-aid like dressing over your incision (Aquacel). This will remain on your incision for 7 days, and then can be removed. You CAN shower with this on. If incision is leaking through the dressing, please call the office . H. Do NOT apply soap or any ointment/lotions directly over incision. I. You may use ice as needed to operative site. SPECIAL CARE INSTRUCTIONS: VERY IMPORTANT TO READ AND REVIEW A. You may be at risk for phlebitis or blood clots. a. Wear surgical stockings (SHEREE hose) for 2 weeks after surgery to improve circulation and reduce swelling. b. Take ASPIRIN 81mg for 4 weeks or as directed. This is your blood thinner. B. There are a few signs you need to watch for after you are home. Call [facility] at [phone] if you experience any of the following: a. If you have a temperature of 101 degrees or higher. b. Sudden increase in pain in your hip not relieved by rest or pain medication. c. Any fluid or drainage from the incision; redness of the incision. d. Shortness of breath or chest pain. C. Call your physician if: a. Temperature is greater than 101 degrees (F). b. Pain is not relieved by prescribed pain medications. c. Increase drainage or redness from incision. d. Unanswered questions or concerns. D. Pain Medication: a. You will be prescribed pain medication upon discharge that should last till your first post-operative appointment. b. If you experience nausea and/or skin rash, discontinue this medication and contact our office for an alternative medication. c. Caution- narcotic pain medication can cause constipation. FOLLOW UP VISIT: Please call [facility] at [phone] to schedule a follow up appointment 10-14 days from the date of your surgery date. Pending Studies at Discharge: No Stand-Alone Forms: My [facility] [employer], Opioid Pain Management, Smoking Cessation Medications and DC Order Prescriptions: New oxycodone 5 mg Tablet 5 mg PO Q8H PRN (Reason: pain) Qty: 15 RF: 0 docusate sodium 100 mg Capsule 100 mg PO BID PRN (Reason: constipation) Qty: 30 RF: 0 Changed aspirin 81 mg Tablet,Delayed Release (Dr/Ec) 81 mg PO BID 30 Days Qty: 60 RF: 0 Discharge Orders: Discharge Order (Routine); Ordered 08/14/21 Ordered By: Benjamin Dawson/Other Patient Handouts: DVT Post Op Prevention Admission Data Admit Date/Time: 08/12/21 19:31 Attending Provider: Benjamin Rahman Admit Provider: Familia Escobedo Primary Care Provider: PCP,NO Other Providers: Familia Escobedo ; Darrin Horta ; Noman Doshi Other Interventions: Discharge Summary Assessment (RN) Last Done: 08/14/21 16:13
[2021-08-14 16:15] VITALS: BP 119/63
== END 2021-08-14 16:55 | disposition home or self-care (01) | DRG 481 ==
LOC: ED 08:03 → ASU 13:26 → SUATTDRO 19:31 → 3E 19:31
DX: S72.21XA Displaced subtrochanteric fracture of right femur, initial encounter for closed fracture; Y93.39 Activity, other involving climbing, rappelling and jumping off; R00.1 Bradycardia, unspecified; Y99.0 Civilian activity done for income or pay; W11.XXXA Fall on and from ladder, initial encounter; D62 Acute posthemorrhagic anemia; Z79.82 Long term (current) use of aspirin